=== PATIENT | male | born 1980 | race Hispanic/Latino ===

== ENCOUNTER 2025-07-08 19:42 | Inpatient (IN) | payer SELFPAY ==
[~2025-07-08] VITALS: Ht 167.6 cm; Wt 118.9 kg
--- NOTE | 2025-07-08 19:54 | NUR ---
SEPSIS ALERT CALLED OVERHEAD TO ROOM 7; PT WITH TEMP OF 101.6 AND PULSE OF 116
--- NOTE | 2025-07-08 19:59 | EKG ---
[facility] Test Date: 2025-07-08 Test Time: 19:53:26 Pat Name: CHASE ADAMSON Department: ED Room: 410 Gender: M Card Seller: [id number] : 1980 Requested By: MARGARETTE HENNING Order Number: [id number] Reading MD: Iveth Valladares Measurements Intervals Lulu Rate: 101 P: 48 RI: 171 QRS: -42 QRSD: 95 T: 47 QT: 353 QTc: 457 Interpretive Statements Sinus tachycardia Left axis deviation No previous ECG available for comparison Electronically Signed On 07-11-2025 08:34:44 CDT by Iveth Valladares Please click the below link to view image of tracing.
[2025-07-08 20:14] LABS: IMMATURE GRANULOCYTE ABSOLUTE 0.03 K/uL (0-1); NUCLEATED RED BLOOD CELLS 0.0 % (0.0-0.19); PLATELET COUNT (AUTO) 231 K/uL (130-400); RED BLOOD CELL COUNT(AUTO) 4.08 MIL/uL (4.50-6.20); RED CELL DISTRIBUTION WIDTH 12.8 % (11.0-15.5); WHITE BLOOD COUNT (AUTO) 9.2 K/uL (4.8-10.8)
[2025-07-08] MEDS: 0.9%NACL 1000ML 1,983 ML IV ONE (20:14)
[2025-07-08 20:21] LABS: RAPID GROUP A STREP negative (NEGATIVE)
[2025-07-08 20:22] LABS: SARS-CoV-2, RNA, NAAT NEGATIVE SARS CoV-2 (NEGATIVE)
[2025-07-08 20:23] LABS: CREATININE 1.1 mg/dL (0.5-1.3); GLOMERULAR FILTR. RATE CALC 85.0 mL/min (>90); GLUCOSE,RANDOM 115.0 mg/dL (70-105); SODIUM SERUM 132.0 mmol/L (136-145); UREA NITROGEN, BLOOD 13.0 mg/dL (7-18)
[2025-07-08 20:30] LABS: INFLUENZA TYPE A Negative For Type A (NEGATIVE); INFLUENZA TYPE B Negative For Type B (NEGATIVE)
[2025-07-08 20:37] LABS: ASPARTATE AMINOTRANSFERASE 15.0 U/L (10-37); CREATINE KINASE, TOTAL 49.0 U/L (21-232); TOTAL PROTEIN, SERUM 8.3 g/dL (6.0-8.3)
--- NOTE | 2025-07-08 20:48 | HMCIMG ---
EXAM: CR Chest, 1 View. CLINICAL HISTORY: cough, sepsis COMPARISON: None provided. FINDINGS: LUNGS: The lungs show no infiltrate or other acute finding. PLEURAL SPACES: No evidence of pleural effusion or pneumothorax. MEDIASTINUM: Prior sternotomy. Mild cardiomegaly. Pulmonary vasculature is within normal limits. BONES: No acute osseous abnormality. IMPRESSION: No acute cardiopulmonary pathology is evident. /[place]
--- NOTE | 2025-07-08 20:54 | ERN ---
ED Note History of Present Illness Stated Complaint: C/O SYNCOPAL EPISODE, FEVER Chief Complaint: Syncope Time Seen by MD: 19:50 Time Seen by Midlevel: 19:55 Dictation: 45-year-old male coming in with complaints cough generalized body weakness and nausea onset yesterday evening. Denies having any chest pain or chest discomfort. Denies any shortness a breath. However states when he got up that he go with the bathroom and felt like he has been a pass out. Allergies: Coded Allergies: No Known Allergies (Unverified Allergy, Unknown, 07/08/25) Past Medical History Past Medical History: Hypertension, Other Additional Past Medical Hx: OPEN HEART, A MONTH AGO Surgical History: Other Surgical History Other: OPEN HEART A MONTH AGO Review of System Dictation Constitutional: Positive for fever Eyes: Negative for injury, pain,redness, and discharge ENT: Negative for injury,pain or swelling Cardiovascular: Negative for chest pain, palpitations, and edema Respiratory: Positive for cough Abdomen/GI: Negative for abdominal pain, nausea, vomiting, diarrhea, and constipation Back: Negative for injury and pain : Negative for injury, bleeding and discharge, positive for frequent urination MS/Extremity: Negative for injury and deformity Skin: Negative for rash, and discoloration Neuro: Negative for headache, weakness, numbness, tingling, and seizure Psych: Negative for suicide ideation, homicidal ideation, and hallucinations Review of Systems: was completed Initial Vital Sign VS Vital Signs Date Time Temp Pulse Resp B/P (MAP) Pulse Ox O2 Delivery O2 Flow Rate FiO2 07/08/25 19:45 101.7 116 20 122/84 96 Room Air 07/08/25 20:27 0 21 Physical Exam Dictation General: awake, alert, NAD Head/Face: Normocephalic, atraumatic Eyes: PERRL, EOMI, vision at baseline ENT: oral cavity clear, TMs clear, no signs of infection Neck: Trachea midline, supple, no nuchal rigidity Cardiovascular: RRR, normal S1/S2, No MRGs, no JVD Respiratory: CTAB, no respiratory distress, No rales or wheezes Abdomen: Soft, non-tender, non-distended, normal bowel sounds, no guarding or rebound. Skin: Warm, dry, normal turgor, no rash MS/Extremity: Pulses equal, no cyanosis, neurovascular intact, FROM Neuro: COAx4, GCS 15, strength 5/5, CN 2-12 intact, normal cerebellar exam, normal gait, Psych: Normal behavior, mood, and affect normal Results (Laboratory/Radiology) Laboratory/Radiology Laboratory Tests Test 07/08/25 19:50 07/08/25 20:00 07/08/25 21:09 Influenza Type A Antigen Negative For Type A Influenza Type B Antigen Negative For Type B SARS-CoV-2, RNA, NAAT NEGATIVE SARS CoV-2 Group A Streptococcus Rapid negative (NEGATIVE) White Blood Count 9.2 K/uL (4.8-10.8) Red Blood Count 4.08 MIL/uL (4.50-6.20) L Hemoglobin 12.4 g/dL (14.0-18.0) L Hematocrit 35.2 % (42-54) L Mean Corpuscular Volume 86.3 fL (79-99) Mean Corpuscular Hemoglobin 30.4 pg (27.0-33.0) Mean Corpuscular Hemoglobin Concent 35.2 g/dL (32.0-36.0) Red Cell Distribution Width 12.8 % (11.0-15.5) Platelet Count 231 K/uL (130-400) Mean Platelet Volume 10.0 fL (7.5-10.5) Immature Granulocyte % (Auto) 0.3 % (0-1) Neutrophils (%) (Auto) 86.6 % (40.0-77.0) H Lymphocytes (%) (Auto) 7.6 % (21.0-51.0) L Monocytes (%) (Auto) 4.9 % (3.0-13.0) Eosinophils (%) (Auto) 0.2 % (0.0-8.0) Basophils (%) (Auto) 0.4 % (0.0-5.0) Neutrophils # (Auto) 8.0 K/uL (1.8-7.7) H Lymphocytes # (Auto) 0.7 K/uL (1.0-4.8) L Monocytes # (Auto) 0.5 K/uL (0.1-1.0) Eosinophils # (Auto) 0.02 K/uL (0.00-0.70) Basophils # (Auto) 0.04 K/uL (0.00-0.20) Absolute Immature Granulocyte (auto 0.03 K/uL (0-1) Nucleated Red Blood Cells 0.0 % (0.0-0.19) White Cell Morphology Comment See comments Sodium Level 132 mmol/L (136-145) L Potassium Level 3.9 mmol/L (3.5-5.1) Chloride Level 97 mmol/L (101-111) L Carbon Dioxide Level 25 mmol/L (21-32) Blood Urea Nitrogen 13 mg/dL (7-18) Creatinine 1.1 mg/dL (0.5-1.3) Glomerular Filtration Rate Calc 85 mL/min (>90) Random Glucose 115 mg/dL (70-105) H Lactic Acid Level 1.5 mmol/L (0.8-2.5) Total Calcium 9.5 mg/dL (8.5-10.1) Total Bilirubin 1.4 mg/dL (0.2-1.0) H Direct Bilirubin 0.3 mg/dL (0.0-0.3) Aspartate Amino Transf (AST/SGOT) 15 U/L (10-37) Alanine Aminotransferase (ALT/SGPT) 16 U/L (12-78) Alkaline Phosphatase 111 U/L (50-136) Total Creatine Kinase 49 U/L (21-232) Troponin I High Sensitivity 7 ng/L (4-75) Total Protein 8.3 g/dL (6.0-8.3) Albumin 4.1 g/dL (3.5-5.0) Lipase 43 U/L (16-77) Urine Color YELLOW (YELLOW) Urine Appearance CLEAR (CLEAR) Urine pH 5.5 (5.0-8.0) Urine Specific [place] 1.024 (1.001-1.031) Urine Protein 10 mg/dL (NEGATIVE) H Urine Glucose (UA) NEGATIVE mg/dL (NEGATIVE) Urine Ketones NEGATIVE mg/dL (NEGATIVE) Urine Occult Blood +- (TRACE) (NEGATIVE) H Urine Nitrate NEGATIVE (NEGATIVE) Urine Bilirubin NEGATIVE mg/dL (NEGATIVE) Urine Urobilinogen 0.2 mg/dL (0.2-1.0) Urine Leukocyte Esterase 250 Princess/uL (NEGATIVE) H Urine RBC 2-5 /HPF (0-1) H Urine WBC 51-100 /HPF (0-1) H Urine Squamous Epithelial Cells RARE /HPF (0-2) Urine Bacteria RARE /HPF (None Seen) Labs Reviewed?: Yes X-RAY Comment: [facility] [address] [place], [place] [id number] IMAGING REPORT Signed PATIENT: CHASE ADAMSON MR#: [id number] : 1980 SEX: M AGE: 45 LOCATION: [facility] ORDER 52 STATUS: REG ER REPORT#: [id number] SERVICE 49 REASON: cough, sepsis ORDERING PHYSICIAN: MARGARETTE HENNING NP PROCEDURE: CXR1VW - CHEST 1VW EXAM: CR Chest, 1 View. CLINICAL HISTORY: cough, sepsis COMPARISON: None provided. FINDINGS: LUNGS: The lungs show no infiltrate or other acute finding. PLEURAL SPACES: No evidence of pleural effusion or pneumothorax. MEDIASTINUM: Prior sternotomy. Mild cardiomegaly. Pulmonary vasculature is within normal limits. BONES: No acute osseous abnormality. IMPRESSION: No acute cardiopulmonary pathology is evident. /[place] DICTATED BY: CORRINA MCNEAL Jr., MD DATE: 07/08/252145 ELECTRONICALLY SIGNED BY: CORRINA MCNEAL Jr., MD DATE: 07/08/252145 ED Course ED Course Orders Procedure Category Date Status Time Cbc With Differential LAB 07/08/25 Complete 19:50 Blood Cult ALISIA 07/08/25 In Process 19:50 Urinalysis Profile LAB 07/08/25 Complete 19:50 Culture Urine ALISIA 07/08/25 In Process 19:50 Creatine Kinase, Total LAB 07/08/25 Complete 19:50 Troponin I High LAB 07/08/25 Complete Sensitivity 19:50 Lactic Acid LAB 07/08/25 Complete 19:50 Basic Metabolic Panel LAB 07/08/25 Complete 19:50 Lipase LAB 07/08/25 Complete 19:50 Hepatic Function Panel LAB 07/08/25 Complete 19:50 Covid Rna Naat LAB 07/08/25 Complete 19:50 Rapid (Group A Strep) LAB 07/08/25 Complete 19:50 Influenza Type A & B, LAB 07/08/25 Complete Rapid 19:50 Chest 1vw RAD 07/08/25 Resulted 19:50 12 Lead Ekg Tracing- EKG 07/08/25 Complete Technical 19:50 Acetaminophen 500mg PHA 07/08/25 Complete Tab (Tylenol 500mg T 19:50 0.9%Nacl 1000ml (Ns PHA 07/08/25 In Process 1000ml) 20:00 Ceftriaxone 1g Vial PHA 07/08/25 Complete (Rocephine 1g Inj) 21:30 Current Medications Medications (Trade) Dose Ordered Sig/Andi Route PRN Reason Start Time Stop Time Status Last Admin Dose Admin Acetaminophen (TYLenol 500MG TAB) 1,000 mg ONCE STAT PO 07/08/25 19:50 07/08/25 19:59 DC 07/08/25 20:14 Ceftriaxone Sodium (ROCEphine 1G INJ) 1 gm ONCE ONCE IVPB 07/08/25 21:30 07/08/25 21:31 DC Sodium Chloride 1,983 ml @ 661 mls/hr ONCE ONCE IV 07/08/25 20:00 07/08/25 22:59 07/08/25 20:14 Vital Signs Date Time Temp Pulse Resp B/P (MAP) Pulse Ox O2 Delivery O2 Flow Rate FiO2 07/08/25 20:27 101.7 108 18 112/84 98 Room Air* 0 21 07/08/25 19:45 101.7 116 20 122/84 96 Room Air HEART Score Response (Comments) Value HEART Score Risk: Low Risk for MACE (1-3) Total Medical Decision Making MDM MDM: 45-year-old male coming in with complaints cough generalized body weakness and nausea onset yesterday evening. Denies having any chest pain or chest discomfort. Denies any shortness a breath. However states when he got up that he go with the bathroom and felt like he has been a pass out. Patient has a c omplaining of frequent urination. Patient states he had a open heart surgery in [place] one month ago. CBC shows no leukocytosis, mild anemia hemoglobin of cold and hematocrit of . No thrombocytopenia. No left shift. Chemistry showing mild hyponatremia at 132, patient received fluids in the emergency room. Kidney function is unremarkable. Lipase is normal. No transaminitis. Troponin is negative. Swabs for influenza, COVID and strep are negative. Chest x-ray interpreted by ER MD as pneumonia .. Being that the patient is one month out open heart this could potentially be cap. UA shows evidence of urinary tract infection this could be in relation to patient being hospitalized for the open heart and having a Rowe catheter in place. Rocephin given in the emergency room and we will discharge patient with the antibiotics accordingly. We will poor ENERGY SALES CONSULTANT for hospitalist team. Okay to admit. Differential diagnosis: Sepsis, urinary tract infection, pneumonia Rationale: Tests considered and ordered secondary to shared decision making include: labs, ECG and radiology Previous outside records reviewed: Old ER visits. Risk of complication and/or morbidity or mortality of patient management: None Medications-Per medication reconciliation Need for hospitalization: Patient does meet criteria for hospitalization. Need for emergency major/minor surgery: No There are no social concerns with this patient. Prescription drug management Prescriptions will include symptomatic care Patient's prior external medical records from other ER visits were reviewed by me as indicated. Prior testing and results from previous visits were reviewed. Prior tests were taken into account with medical decision making and resource utilization, independent historian/historians were used to obtain complete medical history. I independently interpreted the test that were performed, results were reviewed by me and considered findings on radiology if ordered. Medical management and examination interpretation discussions were had by me with other qualified healthcare professionals as indicated for the patient's care. Critical Care Note Critical Time: 30 minutes (Fluid resuscitation, sepsis.On re-evaluation feels much better after fluid resuscitation.) DX & DISP Disposition: Inpatient Decision to Admit Date: Jul 08, 2025 Decision to Admit Time: 21:40 Departure Impression: Primary Impression: CAP (community acquired pneumonia) Additional Impressions: Urinary tract infection, Dehydration, Hyponatremia, Hypochloremia Condition: Stable I have reviewed the case, and I agree with, Diagnosis and Plan MARGARETTE HENNING ENERGY SALES CONSULTANT Jul 08, 2025 20:54
[2025-07-08 21:20] LABS: ADD UA MICROSCOPIC YES; APPEARANCE,URINE CLEAR (CLEAR); GLUCOSE, URINE (UA) NEGATIVE (NEGATIVE); LEUKOCYTE ESTERASE ,URINE 250 Leu/uL (NEGATIVE); NITRATE,URINE NEGATIVE (NEGATIVE); OCCULT BLOOD,URINE +- (TRACE) (NEGATIVE)
[2025-07-08 21:25] LABS: SQUAMOUS EPITHELIAL CELL,UR RARE /HPF (0-2)
--- NOTE | 2025-07-08 21:46 | HP ---
History of Present Illness Reason for Visit: lightheadedness History of Present Illness Mr. West is a 41 year old male that was seen and examined today on 07/08/2025. Patient is a good historian of personal health Patient reports that he came to the emergency department with a chief complaint of dizziness. Onset was 07/07/2025 at 8:00 a.m.. Location is head. Duration is on and off. Character is described as spinning. There was no alleviating factors. Symptoms are aggravated with walking. Patient reports associated fever. Today in the emergency department CBC unremarkable, chemistry unremarkable, urinalysis positive for leukocyte esterase and WBCs 50 1-100 per high-powered microscopy field. Flu negative, COVID negative, lactic acid unremarkable, chest x-ray unremarkable. Additionally patient arrived with a temperature of 101.0, heart rate 106, identified source of infection being urine. Patient met clinical sepsis criteria Past Medical History ADDITIONAL PAST MEDICAL HISTORY: [Hypertension, CAD (80% occlusion and one- vessel on 60% occlusion another vessel) status post CABG] SOCIAL HISTORY: [Negative for smoking, alcohol use, drug use.] SURGICAL HISTORY: [CABG, brain tumor excision] Review of Systems General: Fever; No Chills, No Night Sweats, No Fatigue, No Malaise, No Appetite, No Other HEENT: No Head Aches, No Visual Changes, No Eye Pain, No Ear Pain, No Dysphasia, No Sinus Congestion, No Post Nasal Drip, No Sore Throat, No Other Pulmonary: No Dyspnea, No Cough, No Pleuritic Chest Pain, No Other Cardiovascular: Lt Headedness; No: Chest Pain, Palpitations, Orthopnea, Paroxysmal Noc. Dyspnea, Edema, Other Gastrointestinal: No: Nausea, Vomiting, Abdominal Pain, Diarrhea, Constipation, Melena, Hematochezia, Other Genitourinary: No Dysuria, No Frequency, No Incontinence, No Hematuria, No Retention, No Other Musculoskeletal: No: other, neck pain, shoulder pain, arm pain, back pain, hand pain, leg pain, foot pain Skin: No Urticaria, No Rash, No Other Neurological: No: Weakness, Numbness, Incoordination, Change in speech, Confusion, Seizures, Other Allergies: Coded Allergies: No Known Allergies (Unverified Allergy, Unknown, 07/08/25) Exam Vital Signs Vital Signs Date Time Temp Pulse Resp B/P (MAP) Pulse Ox O2 Delivery O2 Flow Rate FiO2 07/08/25 20:27 101.7 108 18 112/84 98 Room Air* 0 21 General Appearance: Alert, Oriented X3, Cooperative, No acute distress HEENT: Atraumatic, PERRLA, EOMI, Mucous membr. moist/pink Respiratory: Clear to auscultation, Normal air movement, NL respiratory effort Cardiovascular: Normal S1, Normal S2, Other (Tachycardia) Abdominal: Normal bowel sounds, Soft, No tenderness Extremities: No edema Skin: No significant lesion Neuro: Normal speech, Strength at 5/5 X4 ext, Sensation intact, Cranial nerves 3-12 NL Psych/Mental Status: Mental status NL, Mood NL, Thoughts/Content NL Assessment/Plan ASSESSMENT: [ Sepsis, POA Urinary tract infection, POA Hypertension Dizziness, POA PLAN: [ Admit patient to medical floor as inpatient status. Place patient on telemetry monitoring. Sepsis, UTI: Patient received fluid resuscitation with 0.9% NS 30 mL/kg Empiric antibiotic therapy with Zosyn Check procalcitonin, follow up with the results Reviewed patient's lactic acid which was unremarkable Check blood culture, follow up with the results Check urine culture, follow up with the results Reviewed patient's chest x-ray which was unremarkable Hypertension: Consider resuming home medications once they have been reconciled. At time of admission home medications has been reconciled. For now: Hydralazine 10 mg IV every 4 hours for systolic blood pressure greater than 160 mmHg Dizziness: Patient reports he has a history of a brain tumor excision Check CT of head in a.m., follow up with the results GI prophylaxis, famotidine DVT prophylaxis, Lovenox ADVANCED CARE PLANNING 1. Which of the following were discussed? Hospice Care - Yes Therapeutic options - yes Advance Directives - Yes - patient states he does not have any advance directives in place at this time, however his mother Meg West can make decisions for him if he becomes unable Other discussions - patient wishes to remain a full code at this time 2. Discussed with who? Patient 3. Voluntary nature of this service was explained to the patient? Yes 4. Amount of time spent - ___16 minutes____ 5. Reviewed by Physician? (if this service was performed by NPP) Yes This document was generated in part using voice recognition software, occasional wrong word or sound alike substitutions may have occurred due to the inherent limitations of voice recognition software. Read the chart carefully and recognize using context, where the substitutions have occurred. Although every effort was made to edit the content, store loss prevention manager and typing errors may occur ATTESTATION BY PHYSICIAN I have seen and examined the patient. I reviewed the documentation, medical decision making, and treatment plan as noted by the mid-level provider above. I agree with the findings and plan of care. ] [facility] Jul 08, 2025 21:46
[2025-07-08 21:51] LABS: AMPHET/METH SCREEN,URINE NEGATIVE (NEGATIVE); BARBITURATE SCREEN, URINE NEGATIVE (NEGATIVE); CANNABINOID SCREEN,URINE NEGATIVE (NEGATIVE); COCAINE SCREEN,URINE NEGATIVE (NEGATIVE)
[2025-07-08] MEDS ORDERED: LACTULOSE 20 GM/30 ML UDCUP PO PRN (22:00)
[2025-07-08] MEDS: ZOSYN 3.375GM +NS 50ML IV SCH (22:03)
[2025-07-08] MEDS: AZITHROMYCIN 500MG+NS 250ML 250 ML IVPB STA (22:04)
[2025-07-09 06:48] LABS: IMMATURE GRANULOCYTE ABSOLUTE 0.02 K/uL (0-1); NUCLEATED RED BLOOD CELLS 0.0 % (0.0-0.19); PLATELET COUNT (AUTO) 180 K/uL (130-400); RED BLOOD CELL COUNT(AUTO) 3.66 MIL/uL (4.50-6.20); RED CELL DISTRIBUTION WIDTH 12.8 % (11.0-15.5); WHITE BLOOD COUNT (AUTO) 5.8 K/uL (4.8-10.8)
[2025-07-09 06:49] LABS: CREATININE 0.9 mg/dL (0.5-1.3); GLOMERULAR FILTR. RATE CALC 108.0 mL/min (>90); GLUCOSE,RANDOM 88.0 mg/dL (70-105); PHOSPHORUS 3.4 mg/dL (2.5-4.9); SODIUM SERUM 135.0 mmol/L (136-145); UREA NITROGEN, BLOOD 12.0 mg/dL (7-18)
--- NOTE | 2025-07-09 09:11 | HMCIMG ---
EXAM: CT Head Without IV contrast. CLINICAL HISTORY: dizziness TECHNIQUE: Axial computed tomography images of the head/brain without intravenous contrast. COMPARISON: None provided. FINDINGS: BRAIN: No evidence of acute hemorrhage. No mass lesion. No CT evidence for acute territorial infarct. No midline shift or extra-axial collections. VENTRICLES: No hydrocephalus. ORBITS: The orbits are unremarkable. SINUSES AND MASTOIDS: The paranasal sinuses and mastoid air cells are clear. BONES: No fracture. SOFT TISSUES: Unremarkable. IMPRESSION: No acute intracranial abnormality. /[place]
[2025-07-09] MEDS: FAMOTIDINE 20MG TAB PO SCH (09:20)
[2025-07-09] MEDS: ENOXAPARIN SODIUM 40 MG/0.4 ML SYRINGE SQ SCH (09:21)
--- NOTE | 2025-07-09 12:51 | PN ---
[facility] PROGRESS NOTE Date of Service: Jul 09, 2025 Time of Service: 12:45 SUBJECTIVE: [ ] Patient reports that he came to the emergency department with a chief complaint of dizziness. Onset was 07/07/2025 at 8:00 a.m.. Location is head. Duration is on and off. Character is described as spinning. There was no alleviating factors. Symptoms are aggravated with walking. Patient reports associated fever. Today in the emergency department CBC unremarkable, chemistry unremarkable, urinalysis positive for leukocyte esterase and WBCs 50 1-100 per high-powered microscopy field. Flu negative, COVID negative, lactic acid unremarkable, chest x-ray unremarkable. Additionally patient arrived with a temperature of 101.0, heart rate 106, identified source of infection being urine. Patient met clinical sepsis criteria 07/09/25 patient remains in ED 20 patient appears acutely ill continue with low- grade temperature is 99.9. Continues with broad-spectrum antibiotics consulted ID blood cultures urine cultures in process. Patient denied chest pain shortness a breath palpitation and dizziness. REVIEW OF SYSTEMS CONSTITUTIONAL: Denies fevers, chills, or night sweats. No unintentional weight loss reported. NEUROLOGICAL: Denies headache, amaurosis fugax, motor weakness, sensory deficit, vertigo/spinning sensation, gait abnormalities, or tremors. ENT: No hearing loss, otalgia, otorrhea, rhinitis, rhinorrhea, hoarseness, or sore throat. CARDIOVASCULAR: Denies any exertional angina, dyspnea on exertion, orthopnea, paroxysmal nocturnal dyspnea, palpitations, life-threatening arrhythmias, claudication. PULMONARY: Denies any shortness of breath, cough, phlegm/sputum, hemoptysis, pleuritic chest pain. SLEEP: Denies morning headaches, daytime somnolence or napping. Denies difficulty falling asleep, staying asleep, waking from sleep. Denies knowledge of snoring. GASTROINTESTINAL: Denies any type of dysphagia to either liquids or solids. Denies nausea, vomiting, pyrosis, early satiety, abdominal pain, diarrhea, constipation, or changes in stool consistency or caliber. Denies coffee-ground emesis, hematemesis, hematochezia, or melanotic stools. GENITOURINARY: Denies frequency, urgency, nocturia, hematuria or incontinence (Storage/Irritative symptoms.) Low urinary stream, straining to void, urinary intermittency or hesitancy, splitting of the voiding stream, terminal dribbling. ENDOCRINOLOGIC: Denies polyuria, polydipsia, polyphagia or heat/cold intolerances. HEMATOLOGIC: Denies thrombophilia/previous clots, or coagulopathy/bleeding disorders. ONCOLOGIC: Denies personal history of malignancy. DERMATOLOGIC: Denies rashes or pruritus. PSYCHIATRIC: Denies any suicidal or homicidal ideation. Denies hallucinations. PHYSICAL EXAM GENERAL APPEARANCE: The patient is awake, alert, and oriented, in no acute cardiopulmonary distress. NEUROLOGICAL: Cranial nerves II-XII grossly intact. Motor is 5/5 in bilateral upper and lower extremities proximal to distal. No sensory deficits. HEENT: Face is symmetric. Pupils are equal and reactive. Extraocular movements are intact. NECK: Supple. No JVD. No thyromegaly. No submental, submandibular, pre- /postauricular, occipital or supraclavicular lymphadenopathy. CHEST: Normal chest expansion. No Telemetry. LUNGS: Absence of any rales, rhonchi or any wheezing. CARDIOVASCULAR: Regular. S1 and S2 normal. No appreciable rubs, murmurs or gallops. ABDOMEN: Soft, nontender, and nondistended. There is no rebound, voluntary guarding, or rigidity. : Deferred. No Rowe. EXTREMITIES: Non-edematous and not cyanotic. No clubbing. Good capillary refill. SKIN: No skin breakdown. Vital Signs (last 8hr) Date Time Temp Pulse Resp B/P (MAP) Pulse Ox O2 Delivery O2 Flow Rate FiO2 07/09/25 12:31 98.1 91 16 129/86 98 Room Air* 0 21 07/09/25 09:21 99.7 07/09/25 07:49 99.7 102 25 134/91 97 Room Air* 0 21 LABS: Laboratory: Test 07/09/25 06:00 07/08/25 21:09 07/08/25 20:00 07/08/25 19:50 Range/Units White Blood Count 5.8 # 4.8-10.8 K/uL Red Blood Count 3.66 L 4.50-6.20 MIL/uL Hemoglobin 11.1 L 14.0-18.0 g/dL Hematocrit 31.5 L 42-54 % Mean Corpuscular Volume 86.1 79-99 fL Mean Corpuscular Hemoglobin 30.3 27.0-33.0 pg Mean Corpuscular Hemoglobin Concent 35.2 32.0-36.0 g/dL Red Cell Distribution Width 12.8 11.0-15.5 % Platelet Count 180 130-400 K/uL Mean Platelet Volume 10.2 7.5-10.5 fL Immature Granulocyte % (Auto) 0.3 0-1 % Neutrophils (%) (Auto) 78.6 H 40.0-77.0 % Lymphocytes (%) (Auto) 13.1 L 21.0-51.0 % Monocytes (%) (Auto) 7.2 3.0-13.0 % Eosinophils (%) (Auto) 0.5 0.0-8.0 % Basophils (%) (Auto) 0.3 0.0-5.0 % Neutrophils # (Auto) 4.6 1.8-7.7 K/uL Lymphocytes # (Auto) 0.8 L 1.0-4.8 K/uL Monocytes # (Auto) 0.4 0.1-1.0 K/uL Eosinophils # (Auto) 0.03 0.00-0.70 K/uL Basophils # (Auto) 0.02 0.00-0.20 K/uL Absolute Immature Granulocyte (auto 0.02 0-1 K/uL Nucleated Red Blood Cells 0.0 0.0-0.19 % Sodium Level 135 L 136-145 mmol/L Potassium Level 3.6 3.5-5.1 mmol/L Chloride Level 101 101-111 mmol/L Carbon Dioxide Level 26 21-32 mmol/L Blood Urea Nitrogen 12 7-18 mg/dL Creatinine 0.9 0.5-1.3 mg/dL Glomerular Filtration Rate Calc 108 >90 mL/min Random Glucose 88 70-105 mg/dL Total Calcium 8.2 L 8.5-10.1 mg/dL Phosphorus Level 3.4 2.5-4.9 mg/dL Magnesium Level 1.90 1.80-2.40 mg/dL Urine Color YELLOW YELLOW Urine Appearance CLEAR CLEAR Urine pH 5.5 5.0-8.0 Urine Specific [place] 1.024 1.001-1.031 Urine Protein 10 H NEGATIVE mg/dL Urine Glucose (UA) NEGATIVE NEGATIVE mg/dL Urine Ketones NEGATIVE NEGATIVE mg/dL Urine Occult Blood +- (TRACE) H NEGATIVE Urine Nitrate NEGATIVE NEGATIVE Urine Bilirubin NEGATIVE NEGATIVE mg/dL Urine Urobilinogen 0.2 0.2-1.0 mg/dL Urine Leukocyte Esterase 250 H NEGATIVE Princess/uL Urine RBC 2-5 H 0-1 /HPF Urine WBC 51-100 H 0-1 /HPF Urine Squamous Epithelial Cells RARE 0-2 /HPF Urine Bacteria RARE None Seen /HPF Urine Opiates Screen NEGATIVE NEGATIVE Urine Barbiturates Screen NEGATIVE NEGATIVE Urine Phencyclidine Screen NEGATIVE NEGATIVE Urine Amphetamines Screen NEGATIVE NEGATIVE Urine Benzodiazepines Screen NEGATIVE NEGATIVE Urine Cocaine Screen NEGATIVE NEGATIVE Urine Marijuana (THC) Screen NEGATIVE NEGATIVE White Cell Morphology Comment See comments Lactic Acid Level 1.5 0.8-2.5 mmol/L Total Bilirubin 1.4 H 0.2-1.0 mg/dL Direct Bilirubin 0.3 0.0-0.3 mg/dL Aspartate Amino Transf (AST/SGOT) 15 10-37 U/L Alanine Aminotransferase (ALT/SGPT) 16 12-78 U/L Alkaline Phosphatase 111 50-136 U/L Total Creatine Kinase 49 21-232 U/L Troponin I High Sensitivity 7 4-75 ng/L Total Protein 8.3 6.0-8.3 g/dL Albumin 4.1 3.5-5.0 g/dL Lipase 43 16-77 U/L Procalcitonin 0.29 0.05-0.5 ng/mL Influenza Type A Antigen Negative For Type A NEGATIVE Influenza Type B Antigen Negative For Type B NEGATIVE SARS-CoV-2, RNA, NAAT NEGATIVE SARS CoV-2 NEGATIVE Group A Streptococcus Rapid negative NEGATIVE Current Medications Medications (Trade) Dose Ordered Sig/Andi Route PRN Reason Start Time Stop Time Status Last Admin Dose Admin Acetaminophen (TYLenol 325MG TAB) 650 mg Q6H PRN PO TEMPERATURE GREATER THAN 101.5 07/08/25 22:00 08/07/25 21:59 07/09/25 09:21 650 MG Acetaminophen (TYLenol 500MG TAB) 1,000 mg ONCE STAT PO 07/08/25 19:50 07/08/25 19:59 DC 07/08/25 20:14 1,000 MG Atorvastatin Calcium (LIPItor 40MG) 40 mg HS PO 07/09/25 21:00 08/08/25 20:59 Azithromycin 250 ml @ 250 mls/hr Q24H STAT IVPB 07/08/25 21:39 07/08/25 22:38 DC 07/08/25 22:04 250 MLS/HR Enoxaparin Sodium (Lovenox) 40 mg DAILY SQ 07/09/25 09:00 08/08/25 08:59 07/09/25 09:21 40 MG Famotidine (Pepcid 20mg Tab) 20 mg DAILY PO 07/09/25 09:00 08/08/25 08:59 07/09/25 09:20 20 MG Hydralazine HCl (APRESOLine 20MG INJ) 10 mg Q6H PRN IV For:SBP above 160;DBP above 90 07/08/25 22:00 08/07/25 21:59 Lactulose (Constulose 20gm/ 30ml Udcup) 20 gm BID PRN PO CONSTIPATION 07/08/25 22:00 08/07/25 21:59 Morphine Sulfate (morPHINE 4MG SYG) 4 mg Q4H PRN IVP SEVERE PAIN (7-10) 07/08/25 22:00 07/15/25 21:59 Ondansetron HCl (zoFRAN 4MG INJ) 4 mg Q6H PRN IV NAUSEA/VOMITING 07/08/25 22:00 08/07/25 21:59 Piperacillin Sod/ Tazobactam Sod (Zosyn 3.375gm+NS 50ml) 3.375 gm Q8H IV 07/08/25 23:00 07/18/25 22:59 07/09/25 06:52 3.375 GM DIAGNOSTICS / RADIOLOGY: [ ] ASSESSMENT: Sepsis, POA Urinary tract infection, POA Hypertension Dizziness, POA In electrolyte derangement hyponatremia Obesity BMI 40.3 PLAN: [ ] Admit medical floor Place patient on telemetry monitoring. Sepsis, UTI: IV fluids NS at 75 mL/hour Empiric antibiotic therapy with Zosyn every 8 hours Microbiology urine culture blood cultures in process ID consulted Hypertension: Hydralazine 10 mg IV every 4 hours for systolic blood pressure greater than 160 mmHg Dizziness: Most likely secondary to dehydration. Patient reports he has a history of a brain tumor excision CT head No acute intracranial abnormality. GI prophylaxis, famotidine DVT prophylaxis, Lovenox ATTESTATION BY PHYSICIAN I have seen and examined the patient. I reviewed the documentation, medical decision making, and treatment plan as noted by the mid-level provider above. I agree with the findings and plan of care. JANEEN BARCENAS MD, ELIZABETH NP Jul 09, 2025 12:51
[2025-07-09] MEDS: PoTASSium chloRIDE 20MEQ ER 20 MEQ ERTAB PO PRN (13:11)
[2025-07-09] MEDS: MAGNESIUM 2GM PREMIX 50ML 50 ML IV PRN (13:11)
[2025-07-09] MEDS ORDERED: PoTASSium chl 10% ELIXIR 20MEQ 20 MEQ/15 ML UDCUP PO PRN (13:30)
--- NOTE | 2025-07-09 16:09 | NUR ---
DCP; HOME Sw met with pt who resides in [facility] with his mother. Pt states PCP is in [place] and he buys his meds there as well. Pt remains independent of is ADLS, uses a walker as needed. No HH or HD services. Pt states he will return to [place] at wi, Sw provided community resources for future use. WALTER ADAMSON [phone] Addendum: 07/09/25 at 1614 by IWONA MALAGON SS Amended: Links added.
[2025-07-09 20:00] VITALS: BP 126/80; PULSE 97; RESP 11; TEMP 100.4; O2SAT 97
[2025-07-09 21:47] VITALS: TEMP 99.1
[2025-07-09 22:18] VITALS: TEMP 99.1
[2025-07-10] VITALS (9 sets, daily range): BP systolic 110–130; BP diastolic 74–84; PULSE 77–90; RESP 17–20; TEMP 98–98.5; O2SAT 97–99
[2025-07-10 06:39] LABS: IMMATURE GRANULOCYTE ABSOLUTE 0.03 K/uL (0-1); NUCLEATED RED BLOOD CELLS 0.0 % (0.0-0.19); PLATELET COUNT (AUTO) 177 K/uL (130-400); RED BLOOD CELL COUNT(AUTO) 3.81 MIL/uL (4.50-6.20); RED CELL DISTRIBUTION WIDTH 12.8 % (11.0-15.5); WHITE BLOOD COUNT (AUTO) 4.6 K/uL (4.8-10.8)
[2025-07-10 06:53] LABS: ASPARTATE AMINOTRANSFERASE 23.0 U/L (10-37); CREATININE 0.9 mg/dL (0.5-1.3); GLOMERULAR FILTR. RATE CALC 108.0 mL/min (>90); GLUCOSE,RANDOM 93.0 mg/dL (70-105); SODIUM SERUM 134.0 mmol/L (136-145); TOTAL PROTEIN, SERUM 7.2 g/dL (6.0-8.3); UREA NITROGEN, BLOOD 9.0 mg/dL (7-18)
[2025-07-10] MEDS: ZOSYN 3.375GM +NS 50ML IV SCH (09:17)
[2025-07-10] MEDS ORDERED: POTA-202 PO (09:50)
[2025-07-10] MEDS ORDERED: ASPI-1005 PO (09:50)
--- NOTE | 2025-07-10 10:23 | PN ---
[facility] PROGRESS NOTE Date of Service: Jul 10, 2025 Time of Service: 10:19 SUBJECTIVE: [ ] Patient reports that he came to the emergency department with a chief complaint of dizziness. Onset was 07/07/2025 at 8:00 a.m.. Location is head. Duration is on and off. Character is described as spinning. There was no alleviating factors. Symptoms are aggravated with walking. Patient reports associated fever. Today in the emergency department CBC unremarkable, chemistry unremarkable, urinalysis positive for leukocyte esterase and WBCs 50 1-100 per high-powered microscopy field. Flu negative, COVID negative, lactic acid unremarkable, chest x-ray unremarkable. Additionally patient arrived with a temperature of 101.0, heart rate 106, identified source of infection being urine. Patient met clinical sepsis criteria 07/09/25 patient remains in ED 20 patient appears acutely ill continue with low- grade temperature is 99.9. Continues with broad-spectrum antibiotics consulted ID blood cultures urine cultures in process. Patient denied chest pain shortness a breath palpitation and dizziness. 07/10/25 patient was seen earlier blood cultures negative 24 hours urine cultures Gram-negative Klebsiella blood cultures patient had temperatures overnight T-max 100.4. We will continue with IV hydration continue with IV antibiotics. REVIEW OF SYSTEMS CONSTITUTIONAL: Denies fevers, chills, or night sweats. No unintentional weight loss reported. NEUROLOGICAL: Denies headache, amaurosis fugax, motor weakness, sensory deficit, vertigo/spinning sensation, gait abnormalities, or tremors. ENT: No hearing loss, otalgia, otorrhea, rhinitis, rhinorrhea, hoarseness, or sore throat. CARDIOVASCULAR: Denies any exertional angina, dyspnea on exertion, orthopnea, paroxysmal nocturnal dyspnea, palpitations, life-threatening arrhythmias, claudication. PULMONARY: Denies any shortness of breath, cough, phlegm/sputum, hemoptysis, pleuritic chest pain. SLEEP: Denies morning headaches, daytime somnolence or napping. Denies difficulty falling asleep, staying asleep, waking from sleep. Denies knowledge of snoring. GASTROINTESTINAL: Denies any type of dysphagia to either liquids or solids. Denies nausea, vomiting, pyrosis, early satiety, abdominal pain, diarrhea, constipation, or changes in stool consistency or caliber. Denies coffee-ground emesis, hematemesis, hematochezia, or melanotic stools. GENITOURINARY: Denies frequency, urgency, nocturia, hematuria or incontinence (Storage/Irritative symptoms.) Low urinary stream, straining to void, urinary intermittency or hesitancy, splitting of the voiding stream, terminal dribbling. ENDOCRINOLOGIC: Denies polyuria, polydipsia, polyphagia or heat/cold intolerances. HEMATOLOGIC: Denies thrombophilia/previous clots, or coagulopathy/bleeding disorders. ONCOLOGIC: Denies personal history of malignancy. DERMATOLOGIC: Denies rashes or pruritus. PSYCHIATRIC: Denies any suicidal or homicidal ideation. Denies hallucinations. PHYSICAL EXAM GENERAL APPEARANCE: The patient is awake, alert, and oriented, in no acute cardiopulmonary distress. NEUROLOGICAL: Cranial nerves II-XII grossly intact. Motor is 5/5 in bilateral upper and lower extremities proximal to distal. No sensory deficits. HEENT: Face is symmetric. Pupils are equal and reactive. Extraocular movements are intact. NECK: Supple. No JVD. No thyromegaly. No submental, submandibular, pre- /postauricular, occipital or supraclavicular lymphadenopathy. CHEST: Normal chest expansion. No Telemetry. LUNGS: Absence of any rales, rhonchi or any wheezing. CARDIOVASCULAR: Regular. S1 and S2 normal. No appreciable rubs, murmurs or gallops. ABDOMEN: Soft, nontender, and nondistended. There is no rebound, voluntary guarding, or rigidity. : Deferred. No Rowe. EXTREMITIES: Non-edematous and not cyanotic. No clubbing. Good capillary refill. SKIN: No skin breakdown. Vital Signs (last 8hr) Date Time Temp Pulse Resp B/P (MAP) Pulse Ox O2 Delivery O2 Flow Rate FiO2 07/10/25 08:00 98.2 81 18 118/78 94 Room Air 07/10/25 04:00 98.4 88 19 122/78 94 Room Air LABS: Laboratory: Test 07/10/25 06:30 07/09/25 06:00 07/08/25 21:09 07/08/25 20:00 Range/Units White Blood Count 4.6 L 4.8-10.8 K/uL Red Blood Count 3.81 L 4.50-6.20 MIL/uL Hemoglobin 11.4 L 14.0-18.0 g/dL Hematocrit 33.2 L 42-54 % Mean Corpuscular Volume 87.1 79-99 fL Mean Corpuscular Hemoglobin 29.9 27.0-33.0 pg Mean Corpuscular Hemoglobin Concent 34.3 32.0-36.0 g/dL Red Cell Distribution Width 12.8 11.0-15.5 % Platelet Count 177 130-400 K/uL Mean Platelet Volume 9.7 7.5-10.5 fL Immature Granulocyte % (Auto) 0.7 0-1 % Neutrophils (%) (Auto) 65.8 40.0-77.0 % Lymphocytes (%) (Auto) 20.2 L 21.0-51.0 % Monocytes (%) (Auto) 10.7 3.0-13.0 % Eosinophils (%) (Auto) 2.2 0.0-8.0 % Basophils (%) (Auto) 0.4 0.0-5.0 % Neutrophils # (Auto) 3.0 1.8-7.7 K/uL Lymphocytes # (Auto) 0.9 L 1.0-4.8 K/uL Monocytes # (Auto) 0.5 0.1-1.0 K/uL Eosinophils # (Auto) 0.10 0.00-0.70 K/uL Basophils # (Auto) 0.02 0.00-0.20 K/uL Absolute Immature Granulocyte (auto 0.03 0-1 K/uL Nucleated Red Blood Cells 0.0 0.0-0.19 % Sodium Level 134 L 136-145 mmol/L Potassium Level 4.0 3.5-5.1 mmol/L Chloride Level 101 101-111 mmol/L Carbon Dioxide Level 27 21-32 mmol/L Blood Urea Nitrogen 9 7-18 mg/dL Creatinine 0.9 0.5-1.3 mg/dL Glomerular Filtration Rate Calc 108 >90 mL/min Random Glucose 93 70-105 mg/dL Total Calcium 8.4 L 8.5-10.1 mg/dL Magnesium Level 2.30 1.80-2.40 mg/dL Total Bilirubin 0.9 0.2-1.0 mg/dL Aspartate Amino Transf (AST/SGOT) 23 10-37 U/L Alanine Aminotransferase (ALT/SGPT) 21 12-78 U/L Alkaline Phosphatase 96 50-136 U/L Total Protein 7.2 6.0-8.3 g/dL Albumin 3.4 L 3.5-5.0 g/dL Phosphorus Level 3.4 2.5-4.9 mg/dL Urine Color YELLOW YELLOW Urine Appearance CLEAR CLEAR Urine pH 5.5 5.0-8.0 Urine Specific [place] 1.024 1.001-1.031 Urine Protein 10 H NEGATIVE mg/dL Urine Glucose (UA) NEGATIVE NEGATIVE mg/dL Urine Ketones NEGATIVE NEGATIVE mg/dL Urine Occult Blood +- (TRACE) H NEGATIVE Urine Nitrate NEGATIVE NEGATIVE Urine Bilirubin NEGATIVE NEGATIVE mg/dL Urine Urobilinogen 0.2 0.2-1.0 mg/dL Urine Leukocyte Esterase 250 H NEGATIVE Princess/uL Urine RBC 2-5 H 0-1 /HPF Urine WBC 51-100 H 0-1 /HPF Urine Squamous Epithelial Cells RARE 0-2 /HPF Urine Bacteria RARE None Seen /HPF Urine Opiates Screen NEGATIVE NEGATIVE Urine Barbiturates Screen NEGATIVE NEGATIVE Urine Phencyclidine Screen NEGATIVE NEGATIVE Urine Amphetamines Screen NEGATIVE NEGATIVE Urine Benzodiazepines Screen NEGATIVE NEGATIVE Urine Cocaine Screen NEGATIVE NEGATIVE Urine Marijuana (THC) Screen NEGATIVE NEGATIVE White Cell Morphology Comment See comments Lactic Acid Level 1.5 0.8-2.5 mmol/L Direct Bilirubin 0.3 0.0-0.3 mg/dL Total Creatine Kinase 49 21-232 U/L Troponin I High Sensitivity 7 4-75 ng/L Lipase 43 16-77 U/L Procalcitonin 0.29 0.05-0.5 ng/mL Test 07/08/25 19:50 Range/Units Influenza Type A Antigen Negative For Type A NEGATIVE Influenza Type B Antigen Negative For Type B NEGATIVE SARS-CoV-2, RNA, NAAT NEGATIVE SARS CoV-2 NEGATIVE Group A Streptococcus Rapid negative NEGATIVE Current Medications Medications (Trade) Dose Ordered Sig/Andi Route PRN Reason Start Time Stop Time Status Last Admin Dose Admin Acetaminophen (TYLenol 325MG TAB) 650 mg Q6H PRN PO TEMPERATURE GREATER THAN 101.5 07/08/25 22:00 08/07/25 21:59 07/09/25 20:47 650 MG Acetaminophen (TYLenol 500MG TAB) 1,000 mg ONCE STAT PO 07/08/25 19:50 07/08/25 19:59 DC 07/08/25 20:14 1,000 MG Atorvastatin Calcium (LIPItor 40MG) 40 mg HS PO 07/09/25 21:00 08/08/25 20:59 07/09/25 20:47 40 MG Azithromycin 250 ml @ 250 mls/hr Q24H STAT IVPB 07/08/25 21:39 07/08/25 22:38 DC 07/08/25 22:04 250 MLS/HR Enoxaparin Sodium (Lovenox) 40 mg DAILY SQ 07/09/25 09:00 08/08/25 08:59 07/10/25 09:19 40 MG Famotidine (Pepcid 20mg Tab) 20 mg DAILY PO 07/09/25 09:00 08/08/25 08:59 07/10/25 09:17 20 MG Hydralazine HCl (APRESOLine 20MG INJ) 10 mg Q6H PRN IV For:SBP above 160;DBP above 90 07/08/25 22:00 08/07/25 21:59 Lactulose (Constulose 20gm/ 30ml Udcup) 20 gm BID PRN PO CONSTIPATION 07/08/25 22:00 08/07/25 21:59 Magnesium Sulfate 50 ml @ 0 mls/hr PROTOCOL PRN IV low mag level 07/09/25 13:30 08/08/25 13:29 07/09/25 13:11 25 MLS/HR Morphine Sulfate (morPHINE 4MG SYG) 4 mg Q4H PRN IVP SEVERE PAIN (7-10) 07/08/25 22:00 07/15/25 21:59 Ondansetron HCl (zoFRAN 4MG INJ) 4 mg Q6H PRN IV NAUSEA/VOMITING 07/08/25 22:00 08/07/25 21:59 Piperacillin Sod/ Tazobactam Sod (Zosyn 3.375gm+NS 50ml) 3.375 gm Q8H IV 07/08/25 23:00 07/10/25 08:38 DC 07/09/25 22:59 3.375 GM Piperacillin Sod/ Tazobactam Sod (Zosyn 3.375gm+NS 50ml) 3.375 gm Q8H IV 07/10/25 09:00 07/20/25 08:59 07/10/25 09:17 3.375 GM Potassium Chloride 100 ml @ 100 mls/hr AD PRN IV POTASSIUM PROTOCOL 07/09/25 13:30 08/08/25 13:29 Potassium Chloride (K-Dur/Klor-Con 20meq) 20 meq AD PRN PO POTASSIUM PROTOCOL 07/09/25 13:30 08/08/25 13:29 07/09/25 15:30 20 MEQ Potassium Chloride (KCl 10% Elixir 20meq/15ml) 20 meq AD PRN PO POTASSIUM PROTOCOL 07/09/25 13:30 08/08/25 13:29 DIAGNOSTICS / RADIOLOGY: [ ] ASSESSMENT: Sepsis, POA Urinary tract infection, gram negative Klebsiella POA Hypertension Dizziness, POA In electrolyte derangement hyponatremia Obesity BMI 40.3 PLAN: [ ] Admit medical floor Place patient on telemetry monitoring. Sepsis, UTI: IV fluids NS at 75 mL/hour we will continue for the next 24 hours Empiric antibiotic therapy with Zosyn every 8 hours Microbiology urine culture noted blood cultures 24 hours no growth. Hypertension: Hydralazine 10 mg IV every 4 hours for systolic blood pressure greater than 160 mmHg Dizziness: Most likely secondary to dehydration. Patient reports he has a history of a brain tumor excision CT head No acute intracranial abnormality. GI prophylaxis, famotidine DVT prophylaxis, Lovenox ATTESTATION BY PHYSICIAN I have seen and examined the patient. I reviewed the documentation, medical decision making, and treatment plan as noted by the mid-level provider above. I agree with the findings and plan of care. JANEEN BARCENAS MD, ELIZABETH NP Jul 10, 2025 10:23
--- NOTE | 2025-07-10 10:34 | HMCIMG ---
EXAMINATION: ULTRASOUND OF THE RETROPERITONEUM. CLINICAL HISTORY: UTI. COMPARISON: None. TECHNIQUE: Real-time grayscale ultrasound images of the kidneys. FINDINGS: The kidneys are normal in caliber, the right kidney measures 11.7 x 5.7 x 5.0 cm and the left kidney measures 11.2 x 5.9 x 6.0 cm in its craniocaudal, AP, and transverse dimensions respectively. There is normal renal cortical thickness, and cortical echogenicity. There is no renal calculus or hydronephrosis. The urinary bladder is normal in caliber and wall thickness (0.4 cm). There are no calculi in the urinary bladder. IMPRESSION: No significant abnormality. /Joann
[2025-07-11 04:00] VITALS: BP 119/84; PULSE 89; RESP 18; TEMP 98.2
[2025-07-11 04:31] LABS: IMMATURE GRANULOCYTE ABSOLUTE 0.03 K/uL (0-1); NUCLEATED RED BLOOD CELLS 0.0 % (0.0-0.19); PLATELET COUNT (AUTO) 209 K/uL (130-400); RED BLOOD CELL COUNT(AUTO) 3.88 MIL/uL (4.50-6.20); RED CELL DISTRIBUTION WIDTH 12.6 % (11.0-15.5); WHITE BLOOD COUNT (AUTO) 5.1 K/uL (4.8-10.8)
[2025-07-11 04:45] LABS: ASPARTATE AMINOTRANSFERASE 21.0 U/L (10-37); CREATININE 0.9 mg/dL (0.5-1.3); GLOMERULAR FILTR. RATE CALC 108.0 mL/min (>90); GLUCOSE,RANDOM 91.0 mg/dL (70-105); SODIUM SERUM 134.0 mmol/L (136-145); TOTAL PROTEIN, SERUM 7.4 g/dL (6.0-8.3); UREA NITROGEN, BLOOD 10.0 mg/dL (7-18)
[2025-07-11 07:53] VITALS: BP 126/84; PULSE 78; RESP 18; TEMP 98.1
[2025-07-11 08:17] VITALS: O2SAT 99
[2025-07-11] MEDS ORDERED: CEFD300C3 PO (11:34)
--- NOTE | 2025-07-11 11:40 | DS ---
Discharge Summary Hospital Course Summary: Patient reports that he came to the emergency department with a chief complaint of dizziness. Onset was 07/07/2025 at 8:00 a.m.. Location is head. Duration is on and off. Character is described as spinning. There was no alleviating factors. Symptoms are aggravated with walking. Patient reports associated fever. Today in the emergency department CBC unremarkable, chemistry unremarkable, urinalysis positive for leukocyte esterase and WBCs 50 1-100 per high-powered microscopy field. Flu negative, COVID negative, lactic acid unremarkable, chest x-ray unremarkable. Additionally patient arrived with a temperature of 101.0, heart rate 106, identified source of infection being urine. Patient met clinical sepsis criteria 07/09/25 patient remains in ED 20 patient appears acutely ill continue with low- grade temperature is 99.9. Continues with broad-spectrum antibiotics consulted ID blood cultures urine cultures in process. Patient denied chest pain shortness a breath palpitation and dizziness. 07/10/25 patient was seen earlier blood cultures negative 24 hours urine cultures Gram-negative Klebsiella blood cultures patient had temperatures overnight T-max 100.4. We will continue with IV hydration continue with IV antibiotics. 07/11/2025. Patient is clinically and hemodynamically stable for discharge. Cultures were Gram-negative Klebsiella we will be discharged on cefdinir 300 mg p.o. b.i.d. for seven days. Denies headaches dizziness no nausea no vomiting no diarrhea reported. Inweaver(s): GENERAL APPEARANCE: The patient is awake, alert, and oriented, in no acute cardiopulmonary distress. NEUROLOGICAL: Cranial nerves II-XII grossly intact. Motor is 5/5 in bilateral upper and lower extremities proximal to distal. No sensory deficits. HEENT: Face is symmetric. Pupils are equal and reactive. Extraocular movements are intact. NECK: Supple. No JVD. No thyromegaly. No submental, submandibular, pre-/postauricular, occipital or supraclavicular lymphadenopathy. CHEST: Normal chest expansion. No Telemetry. LUNGS: Absence of any rales, rhonchi or any wheezing. CARDIOVASCULAR: Regular. S1 and S2 normal. No appreciable rubs, murmurs or gallops. ABDOMEN: Soft, nontender, and nondistended. There is no rebound, voluntary guarding, or rigidity. : Deferred. No Rowe. EXTREMITIES: Non-edematous and not cyanotic. No clubbing. Good capillary refill. SKIN: No skin breakdown. Procedure(s): REASON: dizziness ORDERING PHYSICIAN: ESDRAS MCINTOSH PROCEDURE: HEAD WO - CT HEAD/BRAIN W/O CONTRAST EXAM: CT Head Without IV contrast. CLINICAL HISTORY: dizziness TECHNIQUE: Axial computed tomography images of the head/brain without intravenous contrast. COMPARISON: None provided. FINDINGS: BRAIN: No evidence of acute hemorrhage. No mass lesion. No CT evidence for acute territorial infarct. No midline shift or extra-axial collections. VENTRICLES: No hydrocephalus. ORBITS: The orbits are unremarkable. SINUSES AND MASTOIDS: The paranasal sinuses and mastoid air cells are clear. BONES: No fracture. SOFT TISSUES: Unremarkable. IMPRESSION: No acute intracranial abnormality. REASON: uti ORDERING PHYSICIAN: LEVY WHITFIELD NP PROCEDURE: RENAL - US RENAL SONOGRAM EXAMINATION: ULTRASOUND OF THE RETROPERITONEUM. CLINICAL HISTORY: UTI. COMPARISON: None. TECHNIQUE: Real-time grayscale ultrasound images of the kidneys. FINDINGS: The kidneys are normal in caliber, the right kidney measures 11.7 x 5.7 x 5.0 cm and the left kidney measures 11.2 x 5.9 x 6.0 cm in its craniocaudal, AP, and transverse dimensions respectively. There is normal renal cortical thickness, and cortical echogenicity. There is no renal calculus or hydronephrosis. The urinary bladder is normal in caliber and wall thickness (0.4 cm). There are no calculi in the urinary bladder. IMPRESSION: No significant abnormality. Assessment/Plan: discharged dx's: Sepsis, POA Urinary tract infection, gram negative Klebsiella POA Hypertension Dizziness, POA In electrolyte derangement hyponatremia Obesity BMI 40.3 PLAN: [ ] ADMISSION DATE: 07/08/2025 DISCHARGE DATE: 07/11/2025 DISPOSITION: Home CONDITION: Stable PRESIDENT PRACTICING UROLOGIST(S): None FOLLOW UP APPOINTMENT(S): PCP 2-3 days PROCEDURES: IMAGING (S) report attached to summary : CT head, renal ultrasound MICROBIOLOGY: report attached to summary; urine cultures, blood cultures ACTIVITY: Ad patrick HOME MEDICATIONS reviewed remain the same CHANGES ON HOME MEDICATIONS . Discontinue Potassium NEW MEDICATIONS cefdinir 300 mg p.o. b.i.d. for seven days TEACHING: Advised to drink plenty of fluids. Hydration, and to complete full cycle of antibiotics side effects adverse reactions were discussed of antibiotics Emergency instructions: The patient was instructed to present to the nearest Emergency Department or call 911 should their symptoms return or worsen. Discharge Instructions: RUN DATE: 07/10/25 [facility] RUN TIME: [id number] [address], [place] [address] Department of Laboratories CLIA # [id number] Novelty Twister Tender: Marysol Dalton DO Specimen Report PATIENT: CHASE ADAMSON ACCT: [id number] LOC: EDHIP U: [id number] AGE/SX: 45/M ROOM: ED RE07/08/[address]: JANEEN BARCENAS MD : [id number] BED: 20 DIS: STATUS: ADM IN TLOC: SPEC: [id number] WILLIAM: 07/08/25 STATUS: COMP REQ: [id number] RECD: 07/09/[address]: MARGARETTE HENNING NP SOURCE: [facility] ENTR: 07/09/25 ROBBIE JAMIL: KATHE SPDESC: CLEAN CAT ORDERED: AERO ID & SENS Procedure Result Warren Date-Time AEROBIC ID & SENSITIVITIES Final 07/10/25-656 [facility] COLONY DESCRIPTION: DAY 1: COLONY COUNT: >100,000 CFU/ML GRAM NEGATIVE RODS IDENTIFICATION AND SENSITIVITY TO FOLLOW [facility] JOSELIN PaulsonIJewel RX --------- ---- AZTREONAM <=4 S CEFTAZIDIME <=1 S CEFTAZIDIME/AVIBACTAM <=8 S CEFTRIAXONE <=1 S GENTAMICIN <=2 S LEVOFLOXACIN <=0.5 S NITROFURANTOIN <=32 S MEROPENEM <=1 S PIPERACILLIN/TAZOBACTAM <=8 S TRIMETHOPRIM/SUFLAMETHOXAZOLE <=2/38 S @ [facility] Test Performed at: [facility] [address], [place], [place] Medical Slag Mixer: Manny Gregg D.O. END OF REPORT Home Medications: Reported Medications Potassium Chloride (Potassium Chloride) 20 Meq Tab.er.prt, 1 TAB PO DAILY for 30 Days, #30 TAB 0 Refills 07/10/25 Aspirin (ASPIRIN 81MG CHEW TAB) 81 Mg Tab.chew, 1 TAB PO DAILY for 30 Days, #30 TAB 0 Refills 07/10/25 New Medications: Cefdinir (Cefdinir) 300 Mg Capsule 1 CAP PO BID for 7 Days, #14 CAP 0 Refills Discontinued Medications: Aspirin (Aspirin 81MG Chew Tab) 81 Mg Tab.chew 1 TAB PO DAILY for 30 Days, #30 TAB 0 Refills Potassium Chloride (Potassium Chloride) 20 Meq Tab.er.prt 1 TAB PO DAILY for 30 Days, #30 TAB 0 Refills Time spent arranging discharge: 31-60 minutes ATTESTATION BY PHYSICIAN I have seen and examined the patient. I reviewed the documentation, medical decision making, and treatment plan as noted by the mid-level provider above. I agree with the findings and plan of care. JANEEN BARCENAS MD, ELIZABETH NP Jul 11, 2025 11:40
[2025-07-11 11:52] VITALS: BP 115/82; PULSE 80; RESP 18; TEMP 97.9
--- NOTE | 2025-07-11 12:55 | NUR ---
DISCHARGED PT WAS EDUCATED ON THE IMPORTANCE OF SELFCARE AFTER SEPSIS. EDUCATED PT TO TAKE HIS MEDICATION PRESCRIBED AND TO F/U WITH PCP. PT VERBALIZED UNDERSTANDING AND NO FURTHER NEEDS VERBALIZED. IV WAS REMOVED WITHOUT COMPLICATIONS. PT IS CURRENTLY WAITING FOR HIS RIDE.
--- NOTE | 2025-07-11 14:15 | NUR ---
PT WAS TRANSPORTED TO THE MAIN LOBBY BY SURGICAL ASST VIA W/C. NO S/S OF DISTRESS NOTED.
[2025-07-12] MEDS ORDERED: ASPIRIN 81MG CHEW TAB PO SCH (09:00)
== END 2025-07-11 14:20 | disposition home or self-care (01) | DRG 871 ==
LOC: EDH 19:42 → EDHIP 19:43 → 4BH 07-10 20:26
PROVIDERS: ADMIT Internal Medicine; ATTEND Internal Medicine
DX: A41.9 Sepsis, unspecified organism (principal); J18.9 Pneumonia, unspecified organism; N39.0 Urinary tract infection, site not specified; E87.1 Hypo-osmolality and hyponatremia; Z68.41 Body mass index [BMI] 40.0-44.9, adult; I10 Essential (primary) hypertension; E66.9 Obesity, unspecified; E86.0 Dehydration; E87.8 Other disorders of electrolyte and fluid balance, not elsewhere classified; I25.10 Atherosclerotic heart disease of native coronary artery without angina pectoris; Z51.5 Encounter for palliative care; Z95.1 Presence of aortocoronary bypass graft
CPT/HCPCS: 36415; 70450; 71045; 76770; 80048; 80053; 80076; 80305; 81001; 82550; 83605; 83690; 83735; 84100; 84145; 84484; 85025; 87040; 87086; 87186; 87635; 87804; 87880; 93005; G0378; J0456; J0696; J1650; J2543; J3475; J7030